=== PATIENT | female | born 1965 | race Caucasian/White ===

== ENCOUNTER 2021-10-15 18:29 | Emergency (ER) | payer SELFPAY ==
[2021-10-15 18:36] VITALS: BP 172/102; PULSE 78; RESP 18; TEMP 36.9; O2SAT 99
--- NOTE | 2021-10-15 18:52 | ED.WOUNDLAC ---
HPI - Wound/Laceration General Chief Complaint: Wound/Laceration Stated Complaint: fall injury Time Seen by Provider: 10/15/21 18:44 Source: patient Mode of arrival: ambulatory Limitations: no limitations History of Present Illness HPI narrative: Patient presents today with a laceration to her forehead that was sustained at 1630 when she tripped and fell on her deck at home. Denies loss of consciousness, headache, neck pain, or any additional symptoms. She is currently pain-free. The only reason she sought treatment today is because she could not get the laceration to stop bleeding and wanted to minimize scarring. Related Data Home Medications Medication Instructions Recorded Confirmed atenolol 25 mg tablet 25 mg PO DAILY 10/15/21 10/15/21 levothyroxine 150 mcg tablet 150 mcg PO DAILY 10/15/21 10/15/21 (Synthroid) losartan 50 mg tablet 50 mg PO DAILY 10/15/21 10/15/21 Allergies Allergy/AdvReac Type Severity Reaction Status Date / Time codeine Allergy Intermediate Makes her Verified 10/15/21 18:42 crazy Penicillins Allergy Intermediate rash Verified 10/15/21 18:42 Sulfa (Sulfonamide Allergy Intermediate Severe fog Verified 10/15/21 18:42 Antibiotics) over eyes Review of Systems Review of Systems: CONSTITUTIONAL: Denies body aches, fever, chills, or sweats. EYES: Denies visual changes, redness, or discharge. ENT: Denies rhinorrhea, congestion, sore throat, or otalgia. CARDIOVASCULAR: Denies chest pain, palpitations, or edema. RESPIRATORY: Denies cough or dyspnea. GASTROINTESTINAL: Denies abdominal pain, nausea, vomiting, or diarrhea. GENITOURINARY: Denies dysuria or hematuria. SKIN: Denies rash, itching. + Forehead laceration MUSCULOSKELETAL: Denies back pain, joint pain, or myalgia. NEUROLOGIC: Denies headache, numbness, tingling, or weakness. PSYCH: Denies depression or anxiety. PMFSH Comments At time of signature, I have reviewed and agree with nursing past medical, surgical, social and family history unless otherwise noted. Please see nursing chart for further information. There is no relevant family history pertinent to the presenting complaint Exam Narrative: GENERAL: Well-appearing, well-nourished, and in no acute distress. HEAD: Normocephalic, atraumatic. EYES: EOMI. PERRL. No redness or drainage. Conjunctivae normal. ENT: Mucous membranes pink and moist. NECK: Normal AROM. CHEST: No respiratory distress. EXTREMITIES: Normal range of motion. No edema. SKIN: Warm, dry, no rash. Capillary refill normal. Normal skin turgor. 3cm full thickness linear laceration above the left eyebrow. No active bleeding. NEURO: No focal deficits. Alert and oriented x3. Gait steady. PSYCH: Normal affect. No signs of depression or anxiety. Course Course Level of Care: Express Care Visit Vital Signs Vital signs: Vital Signs Temperature 98.4 F 10/15/21 18:36 Pulse Rate 78 10/15/21 18:36 Respiratory Rate 18 10/15/21 18:36 Blood Pressure 172/102 H 10/15/21 18:36 Pulse Oximetry 99 10/15/21 18:36 Oxygen Delivery Room Air 10/15/21 18:36 Temperature 98.4 F 10/15/21 18:36 Pulse Rate 78 10/15/21 18:36 Respiratory Rate 18 10/15/21 18:36 Blood Pressure 172/102 H 10/15/21 18:36 Pulse Oximetry 99 10/15/21 18:36 Oxygen Delivery Room Air 10/15/21 18:36 Reviewed. Pt has been instructed to follow up with her PCP regarding her elevated blood pressure today. Procedures Laceration Laceration 1: Date: 10/15/21 Time: 19:34 Site: face Side (If applicable): left Size (cm): 3 Description: linear Depth: simple, single layer Local Anesthetic: lidocaine 1% Amount of anesthesia used (mL): 2 Pre-repair: wound explored and irrigated ====== Skin Level ====== Skin layer closed with: nylon Size (cm): 5-0 Number of sutures: 7 Technique: simple, interrupted ====== Subcutaneous
[2021-10-15] MEDS: TETANUS,DIPHTHERIA,AC PERTUSSIS ADULT (0.5 ML) BOOSTRIX IM (18:55)
== END 2021-10-15 19:39 | disposition home or self-care (01) ==
PROVIDERS: Emergency Provider Nurse Practitioner; PCP Family Medicine
DX: S01.81XA Laceration without foreign body of other part of head, initial encounter (principal); W01.0XXA Fall on same level from slipping, tripping and stumbling without subsequent striking against object, initial encounter; Z23 Encounter for immunization; I10 Essential (primary) hypertension; E03.9 Hypothyroidism, unspecified; Z86.16 Personal history of COVID-19
CPT/HCPCS: 12013; 90471; 90715; 99212; G0463

== ENCOUNTER 2021-10-25 12:51 | Emergency (ER) | payer SELFPAY ==
[2021-10-25 12:56] VITALS: BP 150/81; PULSE 66; RESP 16; TEMP 36.9; O2SAT 99
--- NOTE | 2021-10-25 13:15 | ED.GENADULT ---
HPI - General Adult General Chief complaint: Wound/Laceration Stated complaint: stitches on head removed Time Seen by Provider: 10/25/21 13:07 Source: patient Mode of arrival: ambulatory Limitations: no limitations History of Present Illness HPI narrative: Patient presents today for suture removal of her forehead. She was seen here on 10/15/2021 and had 7 sutures placed in her forehead after a fall on her deck at home. States wound is healing well and she has had no problems. Related Data Home Medications Medication Instructions Recorded Confirmed atenolol 25 mg tablet 25 mg PO DAILY 10/15/21 10/25/21 levothyroxine 150 mcg tablet 150 mcg PO DAILY 10/15/21 10/25/21 (Synthroid) losartan 50 mg tablet 50 mg PO DAILY 10/15/21 10/25/21 Allergies Allergy/AdvReac Type Severity Reaction Status Date / Time codeine Allergy Intermediate Makes her Verified 10/25/21 13:02 crazy Penicillins Allergy Intermediate rash Verified 10/25/21 13:02 Sulfa (Sulfonamide Allergy Intermediate Severe fog Verified 10/25/21 13:02 Antibiotics) over eyes Review of Systems Review of Systems: CONSTITUTIONAL: Denies body aches, fever, chills, or sweats. EYES: Denies visual changes, redness, or discharge. ENT: Denies rhinorrhea, congestion, sore throat, or otalgia. CARDIOVASCULAR: Denies chest pain, palpitations, or edema. RESPIRATORY: Denies cough or dyspnea. GASTROINTESTINAL: Denies abdominal pain, nausea, vomiting, or diarrhea. GENITOURINARY: Denies dysuria or hematuria. SKIN: Denies rash, itching. + Healing laceration to forehead MUSCULOSKELETAL: Denies back pain, joint pain, or myalgia. NEUROLOGIC: Denies headache, numbness, tingling, or weakness. PSYCH: Denies depression or anxiety. PMFSH Comments At time of signature, I have reviewed and agree with nursing past medical, surgical, social and family history unless otherwise noted. Please see nursing chart for further information. There is no relevant family history pertinent to the presenting complaint Exam Narrative: GENERAL: Well-appearing, well-nourished, and in no acute distress. HEAD: Normocephalic, atraumatic. EYES: EOMI. No redness or drainage. Conjunctivae normal. ENT: Mucous membranes pink and moist. NECK: Normal AROM. CHEST: No respiratory distress. EXTREMITIES: Normal range of motion. No edema. SKIN: Warm, dry, no rash. Capillary refill normal. Normal skin turgor. Healing laceration to left forehead. 7 intact sutures noted. NEURO: No focal deficits. Alert and oriented x3. Gait steady. PSYCH: Normal affect. No signs of depression or anxiety. Course Course Level of Care: Express Care Visit Vital Signs Vital signs: Vital Signs Temperature 98.5 F 10/25/21 12:56 Pulse Rate 66 10/25/21 12:56 Respiratory Rate 16 10/25/21 12:56 Blood Pressure 150/81 H 10/25/21 12:56 Pulse Oximetry 99 10/25/21 12:56 Oxygen Delivery Room Air 10/25/21 12:56 Temperature 98.5 F 10/25/21 12:56 Pulse Rate 66 10/25/21 12:56 Respiratory Rate 16 10/25/21 12:56 Blood Pressure 150/81 H 10/25/21 12:56 Pulse Oximetry 99 10/25/21 12:56 Oxygen Delivery Room Air 10/25/21 12:56 Reviewed. Pt has been instructed to follow up with her PCP regarding her elevated blood pressure today. Procedures Other Procedure Procedure 1: Other Procedure: 7 6-0 nylon sutures removed from left forehead laceration. Wound edges approximated well without signs of bacterial infection. Medical Decision Making Differential Diagnosis Differential Diagnosis: Suture removal, Abscess, cellulitis Vital Signs Vital Signs: Vital Signs Temperature 98.5 F 10/25/21 12:56 Pulse Rate 66 10/25/21 12:56 Respiratory Rate 16 10/25/21 12:56 Blood Pressure 150/81 H 10/25/21 12:56 Pulse Oximetry 99 10/25/21 12:56 Oxygen Delivery Room Air 10/25/21 12:56 Temperature 98.5 F 10/25/21 12:56 Pulse Rate 66 10/25/21 12:56 Respiratory Rate 16 09/30
== END 2021-10-25 13:30 | disposition home or self-care (01) ==
PROVIDERS: Emergency Provider Nurse Practitioner; PCP Family Medicine
DX: S01.81XD Laceration without foreign body of other part of head, subsequent encounter (principal); W19.XXXD Unspecified fall, subsequent encounter; I10 Essential (primary) hypertension; E03.9 Hypothyroidism, unspecified; Z86.16 Personal history of COVID-19
CPT/HCPCS: 99211; G0463